=== PATIENT | female | born 1950 ===

== ENCOUNTER 2018-06-25 10:43 | Outpatient (CLI) | payer MEDICARE | END 2018-06-25 10:44 | disposition home or self-care (01) | LOC: C.LAB 10:43 | DX: K43.2 Incisional hernia without obstruction or gangrene (principal) ==

== ENCOUNTER 2018-07-02 07:32 | Outpatient (CLI) | payer MEDICARE | END 2018-07-02 07:33 | disposition home or self-care (01) | LOC: C.CTH 07:32 | DX: K40.90 Unilateral inguinal hernia, without obstruction or gangrene, not specified as recurrent (principal) ==

== ENCOUNTER 2018-07-19 09:58 | Outpatient (CLI) | payer MEDICARE | END 2018-07-19 09:59 | disposition home or self-care (01) | LOC: C.PAT 09:58 | DX: K80.10 Calculus of gallbladder with chronic cholecystitis without obstruction (principal) ==

== ENCOUNTER 2018-08-01 07:11 | Day surgery (SDC) | payer MEDICARE ==
[2018-07-19 10:44] VITALS: BMI 27.9
[2018-08-01] MEDS ORDERED: Bupivacaine 0.25% 20 ML INJ IJ ONE (09:38)
[2018-08-01] MEDS ORDERED: ceFAZolin 1 gm in NS 2 GM/200 ML BAG IVPB ONE (09:38)
[2018-08-01] MEDS ORDERED: Lidocaine/Epinephrine 1% 1:100000 10 ML IJ ONE (09:38)
[2018-08-01] MEDS ORDERED: Propofol 10 mg/ml Inj (20 ML) ONE ×2 (10:23→11:39)
[2018-08-01] MEDS ORDERED: Midazolam 2 MG/2 ML VIAL ONE (10:23)
[2018-08-01] MEDS: Bupivacaine Liposomal Inj 20 ml INFIL ONE ×2 (11:00→12:10)
[2018-08-01] MEDS: Sodium Chloride 0.9% 40 ML IV ONE ×2 (11:04→12:10)
[2018-08-01] MEDS ORDERED: HYDROmorphone 0.5 mg/0.5 ml ISec IVP PRN (12:51)
--- NOTE | 2018-08-01 12:53 | PCM.SURG1 ---
Surgeon's Initial Post Op Note - Surgeon's Notes Surgeon: Dr. Zarco Information Technology Assistant: Ambika Anna Type of Anesthesia: General Endo, Block Regional, Local Pre-Operative Diagnosis: porcelain gallbladder Operative Findings: dense adhesions, intrahepatic calcified gallbladder Post-Operative Diagnosis: same Operation Performed: robotic cholecystectomy Specimen/Specimens Removed: gallbladder Estimated Blood Loss: EBL {In ML}: 10 Blood Products Given: N/A Drains Used: Kyle Post-Op Condition: Good Date of Surgery/Procedure: 08/01/18 Time of Surgery/Procedure: 12:53
[2018-08-01] MEDS ORDERED: Lactated Ringer's 1,000 ML IV ONE (16:15)
[2018-08-01 18:15] VITALS: RESP 20; O2SAT 95
--- NOTE | 2018-08-02 03:09 | OP ---
PROCEDURE DATE: 08/01/2018 PREOPERATIVE DIAGNOSES: 1. Porcelain gallbladder. 2. Abdominal pain. 3. Incisional hernia. POSTOPERATIVE DIAGNOSES: 1. Porcelain gallbladder. 2. Extensive post-inflammatory adhesions. 3. Large incisional hernia. PROCEDURES DONE: 1. Robotic cholecystectomy. 2. Robotic enterolysis and lysis of adhesions. 3. Robotic indocyanine green fluoroscopy and angiography. 4. Laparoscopic bilateral transversus abdominis plane block placement. SURGEON: Jayesh Zarco MD INSURANCE UNDERWRITER: RAFFI Ivey SECOND INSURANCE UNDERWRITER: Zulema Rios, PGY-[address] Girard was present in the procedure. ANESTHESIA: General endotracheal tube anesthesia. ESTIMATED BLOOD LOSS: Around 10 mL. DRAINS: A 19-Tamazight Kyle drain was placed. COMPLICATIONS: None. INTRAOPERATIVE FINDINGS: The patient had extensive post-inflammatory adhesions in the right upper quadrant and the gallbladder was completely contracted and extremely hard, almost looking like a malignancy. The patient also had extensive Calot's triangle adhesions and dilated common bile duct and a very short cystic duct. DESCRIPTION OF PROCEDURE: On intraoperative steps, this is a 67-year-old female, who was diagnosed with porcelain gallbladder and incisional hernia. The patient was consented for the robotic cholecystectomy and lysis of adhesions related to the incisional hernia, possible liver dissection. The patient was brought to the OR, placed supine on the operating table. After induction of anesthesia, the abdomen was prepped and draped in the usual sterile fashion. Using the Visiport technique in the left upper quadrant, peritoneal cavity was entered. Pneumo was created. Another three 8-mm port was placed in the upper abdomen. Robot was brought in. Camera arm as well as arm 1 and arm 2 were docked. The patient had peritoneal as well as omental adhesions in the right upper quadrant that were taken down. The gallbladder appeared to be extremely thickened, almost calcified and a stitch was placed on the gallbladder to retract the gallbladder cranially and the Calot's triangle dissection was done. First, the duodenum was dissected free from the gallbladder fossa and then the dissection was carried down to identify the cystic duct and common bile duct junction. The cystic duct was divided between the two clips nearby gallbladder and there were 2 clips left over the patient. The intraoperative indocyanine green fluoroscopy was done to identify the ductal anatomy before dividing the cystic duct. The right hepatic artery was also identified. After that, the dissection was carried down and the cystic artery was also clipped and cut. The gallbladder was extensively in intrahepatic location and with blunt and sharp dissection, the gallbladder was completely from the liver bed and it was sent off the table for pathology. The laparoscopic bilateral TAP block was given, 30 mL of Exparel with saline was injected in the transverse abdominis muscles plane area and after proper bilateral TAP block, all the ports were taken out under vision. Pneumo was deflated. The umbilical port site was closed with Saji-See and all the ports were closed in two layers with subcutaneous with 2-0 Vicryl and skin with 4-0 Monocryl. The lysis of adhesions of the hernia site was not done. The patient was extubated in the OR and sent to the postanesthesia care unit in stable condition. Jayesh Zarco MD
[2018-08-02 07:35] VITALS: BP 119/69; PULSE 75; TEMP 98.6
[2018-08-02 08:03] LABS: BASO # 0.1 K/uL (0.0-0.2); BASO % 0.8 % (0.0-2.0); EOS % 0.3 % (0.0-4.0); HEMOGLOBIN 12.8 g/dL (11.0-16.0); LYMPH # 1.6 K/uL (1.0-4.3); LYMPH % 18.7 % (20.0-40.0); MEAN CELL VOLUME 86.3 fL (81.0-99.0); MEAN CORPUSCULAR HEMOGLOBIN 28.7 pg (27.0-31.0); MEAN CORPUSCULAR HGB CONC 33.3 g/dL (33.0-37.0); MONO # 0.6 K/uL (0.0-0.8); NEUT # 6.3 K/uL (1.8-7.0); NEUT % 73.2 % (50.0-75.0); NRBC % 0.1 % (0.0-2.0); RBC 4.44 Mil/uL (3.80-5.20); RED CELL DISTRIBUTION WIDTH 15.3 % (11.5-14.5); WHITE BLOOD COUNT 8.6 K/uL (4.8-10.8)
[2018-08-02 08:42] LABS: ALB/GLOB RATIO 1.1 (1.0-2.1); ALBUMIN 3.8 g/dL (3.5-5.0); ALT/SGPT 83 U/L (9-52); AST/SGOT 81 U/L (14-36); BLOOD UREA NITROGEN 9 mg/dL (7-17); GFR NON-AFRICAN AMERICAN > 60
--- NOTE | 2018-08-02 09:02 | CP.PCM.DIS ---
Provider - Provider Date of Admission: 08/01/2018 Attending physician: Jayesh Zarco MD Time Spent in preparation of Discharge (in minutes): 45 Diagnosis - Discharge Diagnosis (1) Porcelain gallbladder Status: Acute Hospital Course - Lab Results Lab Results: Most Recent Lab Values WBC 8.6 K/uL (4.8-10.8) 08/02/18 07:55 RBC 4.44 Mil/uL (3.80-5.20) 08/02/18 07:55 Hgb 12.8 g/dL (11.0-16.0) 08/02/18 07:55 Hct 38.3 % (34.0-47.0) 08/02/18 07:55 MCV 86.3 fL (81.0-99.0) 08/02/18 07:55 MCH 28.7 pg (27.0-31.0) 08/02/18 07:55 MCHC 33.3 g/dL (33.0-37.0) 08/02/18 07:55 RDW 15.3 % (11.5-14.5) H 08/02/18 07:55 Plt Count 333 K/uL (130-400) 08/02/18 07:55 MPV 9.0 fL (7.2-11.7) 08/02/18 07:55 Neut % (Auto) 73.2 % (50.0-75.0) 08/02/18 07:55 Lymph % (Auto) 18.7 % (20.0-40.0) L 08/02/18 07:55 [place] % (Auto) 7.0 % (0.0-10.0) 08/02/18 07:55 Eos % (Auto) 0.3 % (0.0-4.0) 08/02/18 07:55 Baso % (Auto) 0.8 % (0.0-2.0) 08/02/18 07:55 Neut # (Auto) 6.3 K/uL (1.8-7.0) 08/02/18 07:55 Lymph # (Auto) 1.6 K/uL (1.0-4.3) 08/02/18 07:55 [place] # (Auto) 0.6 K/uL (0.0-0.8) 08/02/18 07:55 Eos # (Auto) 0.0 K/uL (0.0-0.7) 08/02/18 07:55 Baso # (Auto) 0.1 K/uL (0.0-0.2) 08/02/18 07:55 Sodium 138 mmol/L (132-148) 08/02/18 07:55 Potassium 3.8 mmol/L (3.6-5.2) 08/02/18 07:55 Chloride 104 mmol/L (98-107) 08/02/18 07:55 Carbon Dioxide 24 mmol/L (22-30) 08/02/18 07:55 Anion Gap 14 (10-20) 08/02/18 07:55 BUN 9 mg/dL (7-17) 08/02/18 07:55 Creatinine 0.5 mg/dL (0.7-1.2) L 08/02/18 07:55 Est GFR ( Amer) > 60 08/02/18 07:55 Est GFR (Non-Af Amer) > 60 08/02/18 07:55 Random Glucose 93 mg/dL (65-105) 08/02/18 07:55 Calcium 9.0 mg/dl (8.6-10.4) 08/02/18 07:55 Total Bilirubin 1.6 mg/dL (0.2-1.3) H 08/02/18 07:55 AST 81 U/L (14-36) H 08/02/18 07:55 ALT 83 U/L (9-52) H 08/02/18 07:55 Alkaline Phosphatase 87 U/L (38-126) 08/02/18 07:55 Total Protein 7.2 g/dL (6.3-8.3) 08/02/18 07:55 Albumin 3.8 g/dL (3.5-5.0) 08/02/18 07:55 Globulin 3.4 gm/dL (2.2-3.9) 08/02/18 07:55 Albumin/Globulin Ratio 1.1 (1.0-2.1) 08/02/18 07:55 - Hospital Course Hospital Course: 67F with PMH of porcelain gallbladder presents for robotic cholecystectomy. Patient tolerated the procedure well with no complications. Patient was admitted for overnight observation. The next day, patient was doing well and tolerating diet. Her labs were acceptable and mostly at her baseline. Patient was asymptomatic. She was ambulating and OOB. patient was using IS. Patient was deemed medically stable for dischagre to home by Dr. Zarco. Patient was instructed to follow up within 1-2 weeks. She was to keep drain in until office visit. Patient also told to keep dressngs for 5 days. Any issues patient is to call Dr. Zarco's office. (This is a summary of the hospital course. Please refer to EMR for more details.) - Date & Time of H&P Date of H&P: 08/01/18 Time of H&P: 07:30 Discharge Exam - Head Exam Head Exam: ATRAUMATIC, NORMOCEPHALIC - Eye Exam Eye Exam: EOMI, Normal appearance Pupil Exam: PERRL - ENT Exam ENT Exam: Mucous Membranes Moist - Cardiovascular Exam Cardiovascular Exam: REGULAR RHYTHM - GI/Abdominal Exam GI & Abdominal Exam: Normal Bowel Sounds, Soft. absent: Distended, Firm, Guarding, Hernia, Rebound, Rigid, Tenderness Additional comments: dressing clean dry and intact drain in place - Back Exam Back exam: absent: CVA tenderness (L), CVA tenderness (R) - Neurological Exam Neurological exam: Alert, CN II-XII Intact, Normal Gait, Oriented x3, Reflexes Normal - Psychiatric Exam Psychiatric exam: Normal Affect, Normal Mood - Skin Skin Exam: Dry, Intact, Normal Color, Warm Discharge Plan - Follow Up Plan Condition: GOOD Disposition: HOME/ ROUTINE Instructions: Cholecystectomy, Laparoscopic Surgery, Oxycodone and Acetaminophen, Managing Pain After Surgery Additional Instructions: Follow up in Dr. Koo office within 2 weeks No heavy lifting for 4 weeks Keep bandages on for 5 days Drain will be removed in office Call Dr. Zarco's office for any issues Marlen percocet y colar segn lo prescrito. Seguimiento en la oficina del Dr. Koo dentro de 2 semanas. No levantar objetos pesados ??magalie 4 semanas Mantener los vendajes magalie 5 [place]. Drenaje ser removido en oficina. Llame a la oficina del Dr. Zarco para cualquier problema. Referrals: Jayesh Zarco MD [Staff Provider] -
[2018-08-02] MEDS ORDERED: Enoxaparin 40 mg Syringe SC SCH (10:00)
== END 2018-08-02 13:53 | disposition home or self-care (01) ==
LOC: C.SDS 07:11 → C.9S 12:47 → C.6T 12:47 → C.SDS 08-02 13:53
PROVIDERS: ATTEND Surgery Surgical Critical Care
DX: K80.10 Calculus of gallbladder with chronic cholecystitis without obstruction (principal); K43.2 Incisional hernia without obstruction or gangrene; K66.0 Peritoneal adhesions (postprocedural) (postinfection); K83.8 Other specified diseases of biliary tract
CPT/HCPCS: 36415; 47562; 64488; 80053; 85025; 88304; J0690; J1650; J2250; J2405; J2704; J3010; J7040; J7120

== ENCOUNTER 2018-08-12 02:55 | Emergency (ER) | payer MEDICARE, OTHER ==
[2018-08-12 02:57] VITALS: BMI 27.9
--- NOTE | 2018-08-12 03:13 | C.PDOC ---
History Of Present Illness 67 yr old female w/ hx of arthritis, umbilical hernia and 1.5 week s/p cholecystectomy p/w RUQ abdominal pain, throbbing + stabbing, radiating into her epigastric area. She notes this pain started after dinner last night at 1900. She notes taking tylenol for the pain with only mild improvent. No N/V or chest pain or shortness of breath. No constipation or diarrhea. Last BM was last night, normal. She denies any rash, fever, chills or night sweeats. Not on any abx currently. Surgeon: Miguel PMD: Marco Time Seen by Provider: 08/12/18 03:01 Chief Complaint (Nursing): Abdominal Pain Past Medical History - Medical History PMH: Arthritis, Gall Bladder Disease Denies: Chronic Kidney Disease Family History: States: Unknown Family Hx - Social History Hx Tobacco Use: No Hx Alcohol Use: No Hx Substance Use: No - Immunization History Hx Tetanus Toxoid Vaccination: No Hx Influenza Vaccination: No Hx Pneumococcal Vaccination: No Review Of Systems Constitutional: Negative for: Fever, Chills, Sweats, Weakness Eyes: Negative for: Pain, Vision Change, Conjunctivae Inflammation, Redness ENT: Negative for: Ear Pain, Nose Pain, Mouth Pain, Throat Pain, Throat Swelling Cardiovascular: Negative for: Chest Pain, Palpitations, Orthopnea Respiratory: Negative for: Cough, Shortness of Breath, Hemoptysis, Wheezing Gastrointestinal: Positive for: Abdominal Pain. Negative for: Nausea, Vomiting, Diarrhea, Melena, Hematochezia, Hematemesis, Rectal Pain Genitourinary: Negative for: Dysuria, Frequency, Incontinence, Hematuria, Vaginal Discharge, Vaginal Bleeding Musculoskeletal: Negative for: Neck Pain, Shoulder Pain, Arm Pain Skin: Negative for: Rash, Lesions Neurological: Negative for: Weakness, Numbness, Headache Physical Exam - Physical Exam Appears: Non-toxic, No Acute Distress Skin: Normal Color, Warm, Dry Eye(s): bilateral: Normal Inspection, PERRL, EOMI Nose: Normal Throat: Normal Neck: Normal Lymphatic: Normal Exam, No Adenopathy Cardiovascular: Rhythm Regular Respiratory: Normal Breath Sounds Gastrointestinal/Abdominal: Normal Exam, Tenderness (ruq, epigastric. ), No Mass, No Distention, No Rebound, Other (umbilical hernia, non-ttp, easily reducible. Surgical site dressings c/d/i. No crepitus or erythema. Abdominal drain noted, sero-sanginous fluid noted. ) Back: Normal Inspection, No CVA Tenderness, No Vertebral Tenderness Extremity: Normal ROM, No Tenderness Neurological/Psych: Oriented x3, Normal Speech, Normal Cognition ED Course And Treatment - Laboratory Results Result Diagrams: 08/12/18 03:34 08/12/18 03:34 Medical Decision Making Medical Decision Makin yr old female w/ hx of umbilical hernia, arthritis and 1.5 weeks s/p ch oleycystectomy w/ Dr. Rivera p/w ruq + epigastric pain after eating dinner. TTP to RUQ and epigastric area. Pt notes intermittent pain there whenever she takes a deep breath. No cough, fever, chills or night sweats. No fall or trauma. No abdnormal drainage from site. pending imaging and labs 0606 labs largely unremarkable pending CT results, UA 0610 Pending eval by Surgical team and ct results. 0627 UTI on labs rocephin ordered no CVAT [address] Duke pending surgical eval, final dispo Disposition - Disposition Disposition Time: 07:00 Condition: STABLE Forms: [facility] (Romanian) - Clinical Impression Clinical Impression: Abdominal pain
[2018-08-12] MEDS ORDERED: Sodium Chloride 0.9% 1,000 ML IV SCH (03:30)
[2018-08-12] MEDS ORDERED: Morphine 4 MG/ML VIAL ONE (03:36)
[2018-08-12 03:38] LABS: BASO # 0.1 K/uL (0.0-0.2); EOS # 0.5 K/uL (0.0-0.7); EOS % 5.9 % (0.0-4.0); HEMOGLOBIN 13.1 g/dL (11.0-16.0); LYMPH # 1.7 K/uL (1.0-4.3); LYMPH % 21.2 % (20.0-40.0); MEAN CELL VOLUME 85.6 fL (81.0-99.0); MEAN CORPUSCULAR HEMOGLOBIN 28.8 pg (27.0-31.0); MEAN CORPUSCULAR HGB CONC 33.7 g/dL (33.0-37.0); MEAN PLATELET VOLUME 8.4 fL (7.2-11.7); MONO # 0.6 K/uL (0.0-0.8); MONO % 6.7 % (0.0-10.0); NEUT # 5.3 K/uL (1.8-7.0); NEUT % 65.2 % (50.0-75.0); RBC 4.54 Mil/uL (3.80-5.20); RED CELL DISTRIBUTION WIDTH 14.9 % (11.5-14.5); WHITE BLOOD COUNT 8.2 K/uL (4.8-10.8)
[2018-08-12 04:01] LABS: ALB/GLOB RATIO 1.1 (1.0-2.1); ALBUMIN 4.2 g/dL (3.5-5.0); ALT/SGPT 93 U/L (9-52); AST/SGOT 78 U/L (14-36); BLOOD UREA NITROGEN 20 mg/dL (7-17); GFR NON-AFRICAN AMERICAN > 60; LIPASE 68 U/L (23-300)
[2018-08-12 06:16] LABS: SQUAMOUS EPITHIAL 2 /hpf (0-5); URINE BILIRUBIN NEGATIVE (NEGATIVE); URINE BLOOD 2+ (NEGATIVE); URINE CLARITY Clear (Clear); URINE COLOR Yellow (YELLOW); URINE GLUCOSE (UA) NORMAL (Normal); URINE LEUKOCYTE ESTERASE NEG Leu/uL (Negative); URINE PROTEIN NEGATIVE (NEGATIVE)
[2018-08-12 06:21] VITALS: TEMP 98
[2018-08-12] MEDS ORDERED: cefTRIAXone IV 1 gm in Dextros 50 ML IVPB ONE (06:27)
[2018-08-12 06:42] LABS: INR 1.1; PARTIAL THROMBOPLASTIN TIME 33.7 SECONDS (21-34); PROTHROMBIN TIME 11.9 SECONDS (9.7-12.2)
[2018-08-12 07:35] VITALS: O2SAT 99
--- NOTE | 2018-08-12 08:42 | CP.PCM.CON ---
<Lillian Rios - Last Filed: 08/12/18 08:49> History of Present Illness - History of Present Illness History of Present Illness: Surgery: Dr. Zarco Reason for consult: Post op pain HPI: Patient is a 67 y/o female w/ pmh of large ventral/incisional hernia, porcelain gallbladder s/p robotic cholecystectomy presents complaining of acute onset of epigastric abdominal pain that started acutely last night. She has been in her normal state of health healing well post op until last night. She states the pain was sharp and not alleviated by tylenol or rest. She denies constipation, diarrhea, nausea or vomiting. Denies f/c. States since presenting to ER the pain has resolved. She has been having regular normal bowel movements and tolerating reg diet. She states the drain output has been minimal, emptying 1x per day and the fluid is serous in nature, unchanged. She states the fluid output has continuously decreased day by day. She reports having a f/u appointment with Dr. Zarco on Monday. PMH: OA, hyperlipidemia, thyroid nodule, asthma (mild), inguinal hernia PSH: inguinal hernia repair x2, ex lap with bladder repair, robotic yennifer NKDA Social: denies tobacco, ETOH or drug use. , lives alone with Good family support. Review of Systems - Review of Systems All systems: reviewed and no additional remarkable complaints except Review of Systems: unless stated in HPI - Constitutional Constitutional: absent: Anorexia, Chills, Fever, Malaise, Weight Loss - EENT Eyes: absent: Blurred Vision, Change in Vision Nose/Mouth/Throat: absent: Dry Mouth, Dysphagia - Cardiovascular Cardiovascular: absent: Chest Pain, Diaphoresis, Dyspnea - Respiratory Respiratory: absent: Cough, Wheezing - Gastrointestinal Gastrointestinal: Abdominal Pain. absent: Belching, Bloating, Change in Stool Character, Constipation, Diarrhea, Hematemesis, Hematochezia, Nausea, Vomiting - Genitourinary Genitourinary: absent: Hematuria, Pyuria - Integumentary Integumentary: absent: Bleeding Lesions, Sores - Neurological Neurological: absent: Abnormal Gait, Dizziness - Psychiatric Psychiatric: absent: Confusion, Depression - Endocrine Endocrine: absent: Polyphagia, Polyuria - Hematologic/Lymphatic Hematologic: absent: Easy Bleeding, Easy Bruising Past Patient History - Past Medical History & Family History Past Medical History?: Yes - Past Social History Smoking Status: Never Smoked - CARDIAC Hx Cardiac Disorders: No - PULMONARY Hx Respiratory Disorders: No - NEUROLOGICAL Hx Neurological Disorder: No - HEENT Hx HEENT Problems: Yes Other/Comment: redness right eye - RENAL Hx Chronic Kidney Disease: No - ENDOCRINE/METABOLIC Hx Endocrine Disorders: No - HEMATOLOGICAL/ONCOLOGICAL Hx Blood Disorders: No - INTEGUMENTARY Hx Dermatological Problems: No - MUSCULOSKELETAL/RHEUMATOLOGICAL Hx Arthritis: Yes - GASTROINTESTINAL Hx Gall Bladder Disease: Yes - GENITOURINARY/GYNECOLOGICAL Hx Genitourinary Disorders: Yes Hx Incontinence: Yes (bladder lift) - PSYCHIATRIC Hx Substance Use: No - SURGICAL HISTORY Hx Surgeries: Yes Hx Cholecystectomy: Yes Hx Herniorrhaphy: Yes (right inguinal hernia) Hx Hysterectomy: Yes Other/Comment: bladder lift - ANESTHESIA Hx Anesthesia: Yes Hx Anesthesia Reactions: No Hx Malignant Hyperthermia: No Meds Allergies/Adverse Reactions: Allergies Allergy/AdvReac Type Severity Reaction Status Date / Time No Known Allergies Allergy Verified 08/12/18 03:14 - Medications Medications: Current Medications Sodium Chloride (Sodium Chloride 0.9%) 1,000 mls @ 100 mls/hr IV .Q10H SHILPA Last Admin: 08/12/18 03:35 Dose: 100 mls/hr Physical Exam - Constitutional Appears: Well, Non-toxic, No Acute Distress - Head Exam Head Exam: ATRAUMATIC, NORMOCEPHALIC - Eye Exam Eye Exam: EOMI, Normal appearance - ENT Exam ENT Exam: Mucous Membranes Moist - Respiratory Exam Respiratory Exam: NORMAL BREATHING PATTERN. absent: Respiratory Distress - Cardiovascular Exam Cardiovascular Exam: REGULAR RHYTHM. absent: Tachycardia - GI/Abdominal Exam GI & Abdominal Exam: Soft. absent: Distended, Guarding, Rebound, Tenderness Additional comments: krys lap incisions CDI w/ steri strips in place Kyle drain with 10cc serous fluid in bulb, removed drain at bedside and placed [place] dressing over drain site no cellulitis around incisions - Extremities Exam Extremities exam: Positive for: normal inspection. Negative for: calf tenderness - Neurological Exam Neurological exam: Alert, Oriented x3 - Psychiatric Exam Psychiatric exam: Normal Affect, Normal Mood - Skin Skin Exam: Dry, Normal Color, Warm Results - Vital Signs Recent Vital Signs: Last Vital Signs Temp 98 F 08/12/18 07:30 Pulse 69 08/12/18 07:30 Resp 15 08/12/18 07:30 BP 126/68 08/12/18 07:30 Pulse Ox 99 08/12/18 07:30 - Labs Result Diagrams: 08/12/18 03:34 08/12/18 03:34 Labs: Laboratory Results - last 24 hr 08/12/18 08/12/18 08/12/18 03:34 03:34 06:03 WBC 8.2 RBC 4.54 Hgb 13.1 Hct 38.9 MCV 85.6 MCH 28.8 MCHC 33.7 RDW 14.9 H Plt Count 408 H MPV 8.4 Neut % (Auto) 65.2 Lymph % (Auto) 21.2 [place] % (Auto) 6.7 Eos % (Auto) 5.9 H Baso % (Auto) 1.0 Neut # (Auto) 5.3 Lymph # (Auto) 1.7 [place] # (Auto) 0.6 Eos # (Auto) 0.5 Baso # (Auto) 0.1 PT INR APTT Sodium 140 Potassium 3.8 Chloride 107 Carbon Dioxide 21 L Anion Gap 16 BUN 20 H Creatinine 0.4 L Est GFR ( Amer) > 60 Est GFR (Non-Af Amer) > 60 Random Glucose 121 H D Calcium 9.0 Total Bilirubin 0.8 AST 78 H ALT 93 H Alkaline Phosphatase 133 H D Total Protein 8.1 Albumin 4.2 Globulin 3.9 Albumin/Globulin Ratio 1.1 Lipase 68 Urine Color Yellow Urine Clarity Clear Urine pH 6.0 Ur Specific [place] 1.019 Urine Protein Negative Urine Glucose (UA) Normal Urine Ketones Negative Urine Blood 2+ H Urine Nitrate Negative Urine Bilirubin Negative Urine Urobilinogen 4.0 H Ur Leukocyte Esterase Neg Urine WBC (Auto) 5 Urine RBC (Auto) 13 H Ur Squamous Epith Cells 2 08/12/18 06:31 WBC RBC Hgb Hct MCV MCH MCHC RDW Plt Count MPV Neut % (Auto) Lymph % (Auto) [place] % (Auto) Eos % (Auto) Baso % (Auto) Neut # (Auto) Lymph # (Auto) [place] # (Auto) Eos # (Auto) Baso # (Auto) PT 11.9 INR 1.1 APTT 33.7 Sodium Potassium Chloride Carbon Dioxide Anion Gap BUN Creatinine Est GFR ( Amer) Est GFR (Non-Af Amer) Random Glucose Calcium Total Bilirubin AST ALT Alkaline Phosphatase Total Protein Albumin Globulin Albumin/Globulin Ratio Lipase Urine Color Urine Clarity Urine pH Ur Specific [place] Urine Protein Urine Glucose (UA) Urine Ketones Urine Blood Urine Nitrate Urine Bilirubin Urine Urobilinogen Ur Leukocyte Esterase Urine WBC (Auto) Urine RBC (Auto) Ur Squamous Epith Cells - Imaging and Cardiology CT scan - abdomen Status: Image reviewed by me, Report reviewed by me Additional comment: gallbladder absent with clips in GB fossa, bowel appears normal caliper without evidence of ileus or obstruction large ventral hernia - known and unchanged since prior study no new/acute findings seen on CT scan Assessment & Plan - Assessment and Plan (Free Text) Assessment: 67 y/o female w/ post operative abdominal pain s/p krys yennifer - resolved Plan: -labs and CT scan unremarkable -will remove drain incase possibilty of illiciting irriation/pain -take motrin/tylenol prn for pain -maintain f/u appointment with Dr. Zarco on Monday -cleared for d/c from a surgical standpoint -return if symptoms worsen or persist -d/w Dr. Zarco [place] PGY4 <Jayesh Zarco B - Last Filed: 08/13/18 08:10> Results - Vital Signs Recent Vital Signs: Last Vital Signs Temp 98 F 08/12/18 07:30 Pulse 64 08/12/18 08:43 Resp 18 08/12/18 08:43 BP 123/65 08/12/18 08:43 Pulse Ox 99 08/12/18 08:43 - Labs Result Diagrams: 08/12/18 03:34 08/12/18 03:34 Attending/Attestation - Attestation I have fully participated in the care of the patient.: Yes I have reviewed all pertinent clinical information: Yes Notes (Text): Pt with Drain s/p Robotic Cholecystectomy and Lysis of adhesions Labs and radiology reviewed Path is suggestive of chronic cholecystitis Plan : DC drain, DC pt home with kulwinder patel f.u in my office next weeks Plan d.w primary team.
[2018-08-12 08:43] VITALS: BP 123/65; PULSE 64; RESP 18
--- NOTE | 2018-08-12 15:57 | RAD ---
Date of service: 08/12/2018 HISTORY: Right upper quadrant pain status post laparoscopic cholecystectomy. COMPARISON: Comparison chest dated 07/19/2018. TECHNIQUE: 1 view obtained. FINDINGS: LUNGS: Minor bibasilar atelectasis PLEURA: No significant pleural effusion identified, no pneumothorax apparent. CARDIOVASCULAR: No aortic atherosclerotic calcification present. Heart size upper limits of normal. No pulmonary vascular congestion. OSSEOUS STRUCTURES: No significant abnormalities. VISUALIZED UPPER ABDOMEN: Normal. OTHER FINDINGS: None. IMPRESSION: Minor bibasilar atelectasis.
--- NOTE | 2018-08-12 17:50 | CT ---
Date of service: 08/12/2018 PROCEDURE: CT abdomen and pelvis HISTORY: Pain status post laparoscopic cholecystectomy 1.5 weeks prior COMPARISON: Comparison made with prior CT scan of the abdomen and pelvis dated 07/02/2018. TECHNIQUE: Contiguous axial images of the abdomen and pelvis performed without oral or intravenous contrast. Additional 2D sagittal and coronal reformats generated. Radiation dose: Total exam DLP = 431.43 mGy-cm. This CT exam was performed using one or more of the following dose reduction techniques: Automated exposure control, adjustment of the mA and/or kV according to patient size, and/or use of iterative reconstruction technique. FINDINGS: LOWER THORAX: Heart size is within range of normal. No significant pericardial effusion. Some minor passive/dependent type atelectasis seen both lung bases left greater than right. There are also somewhat irregular linear scarring changes seen in base and left lingular region. LIVER: Liver is enlarged measuring over 21 cm in CC dimension however there is slightly foreshortened appearance of the left lobe and the possibility of a Paula's lobe not completely excluded. No obvious hepatic mass collection or calcification. There are minimal infiltration changes and questionable small amount of fluid seen in the mesentery at the entry site and to a lesser degree along the course of the drainage catheter. GALLBLADDER AND BILE DUCTS: Cholecystectomy with in situ percutaneous drainage catheter that extends through the mid right lateral abdominal wall. There is what appears represent a small amount of fluid within the gallbladder fossa with radiopaque densities that may represent opaque suture material though calculi cannot be excluded. There is dilatation of the common bile duct as well. PANCREAS: Pancreas appears atrophic and fatty replaced. There are no obvious pancreatic masses collections or calcifications seen. No significant pancreatic ductal dilatation SPLEEN: Spleen exhibits normal size and attenuation pattern without mass collection or calcification. ADRENALS: Slightly prominent right adrenal gland. KIDNEYS AND URETERS: Kidneys demonstrate relatively symmetric size. No evidence of nephrolithiasis or hydronephrosis. Straightened is an apparent cortical cyst anterolateral mid pole left kidney region. BLADDER: The urinary bladder is physiologically distended. Minimal bladder wall thickening. Rule out urinalysis REPRODUCTIVE: Hysterectomy. Redemonstrated is an elliptical shaped fluid collection the right pelvis and measures approximately 3.8 x 1.7 cm which could represent the right ovary. Clinical correlation recommended to exclude the possibility of a other ovarian cystic lesion.. APPENDIX: Appendix which was visualized on the prior study is not positively identified on this exam. No obvious inflammatory changes right lower quadrant of the abdomen. BOWEL: Evaluation of the bowel is limited due to the lack of oral contrast material. The stomach is incompletely distended with thick-walled appearance. Visualized loops of small bowel exhibit normal contour and caliber. No evidence of acute mechanical small bowel obstruction. There is large ventral wall hernia and/or ventral wall dehiscence through which mesenteric fat and unobstructed loops of small bowel and some components of large bowel (what appears represent redundant proximal transverse colon). There is a loop of bowel also within the right aspect of the large ventral wall hernia that exhibits an anastomosis. Clinical correlation with surgical history recommended.. Clinical correlation with surgical history is recommended. There is a large amount of stool also present within the cecum ascending as well as transverse colon with relative collapse of the remaining colon. Few scattered colonic diverticula PERITONEUM: No gross free intraperitoneal air. There appears to be some fluid in the gallbladder fossa LYMPH NODES: Unremarkable. No enlarged lymph nodes. VASCULATURE: Unremarkable. No aortic aneurysm. No aortic atherosclerotic calcification or mural plaque present. BONES: Mild multilevel degenerative spondylosis of the thoracic spine. OTHER FINDINGS: None. IMPRESSION: There is a percutaneous drainage catheter extending through the right lateral mid abdominal wall. Minimal infiltration changes and questionable small amount of fluid seen in the mesentery at the entry site and to a lesser degree along the course of the drainage catheter. Small amount of residual fluid felt to be present within the gallbladder fossa. Several densities are also present within the gallbladder fossa of uncertain etiology though could represent suture material although calculi cannot be excluded.. Clinical correlation recommended. There dilatation of the common bile duct although no obvious choledocholithiasis identified on this study. MRCP may be of some benefit if necessary.. Clinical correlation recommended.. There is a large ventral wall hernia and/or abdominal wall dehiscence of through which a large amount of a mesentery and loops of small bowel of extended. There also appears to be loop of redundant a proximal transverse colon. Note also again made of an anastomosis involving a loop of bowel located in the right aspect of the large hernia. There is a moderate amount of stool seen throughout the right and transverse colon consistent with fecal retention/constipation. There is an anastomosis involving a segment of bowel is located in the large ventral wall hernia Redemonstrated is a left renal cyst. Redemonstrated is a elliptical shaped focus right pelvis.
== END 2018-08-12 08:50 | disposition home or self-care (01) ==
LOC: C.ER 02:55
DX: G89.18 Other acute postprocedural pain (principal); R10.13 Epigastric pain
CPT/HCPCS: 71045; 74176; 80053; 81001; 83690; 85025; 85610; 85730; 96361; 96365; 96375; 99285; J0696; J2270; J7030